=== PATIENT | female | born 1970 | race Caucasian/White ===

== ENCOUNTER → 2020-04-26 12:48 | Outpatient (BNVA) | payer MEDICARE, MEDICAID, SELFPAY | PROVIDERS: Family Provider Family Medicine; PCP Family Medicine; Visit Provider Nurse Practitioner Family | DX: N89.8 Other specified noninflammatory disorders of vagina (principal) | CPT/HCPCS: 81000; 87086; 87491; 87591; 87661 ==

== ENCOUNTER → 2020-07-03 12:54 | Outpatient (BNVA) | payer MEDICARE, MEDICAID, SELFPAY | PROVIDERS: Family Provider Family Medicine; PCP Family Medicine; Visit Provider Internal Medicine | DX: M06.9 Rheumatoid arthritis, unspecified (principal); Z11.59 Encounter for screening for other viral diseases; Z11.1 Encounter for screening for respiratory tuberculosis | CPT/HCPCS: 36415; 80053; 85025; 85651; 86140; 86480; 86704; 86803; 87340; 99202; 99214 ==

== ENCOUNTER 2020-07-31 14:24 | Outpatient (CLI) | payer MEDICARE, MEDICAID, SELFPAY ==
--- NOTE | 2020-07-31 13:30 | XR_ITS ---
WS: [id number] LATERAL CERVICAL SPINE: 3 view. Lateral radiographs are performed in upright neutral, flexion and extension to the patient's toleranc e. HISTORY: cervical pain, dec ROM COMPARISON: None available. Straightening and reversal normal cervical lordosis centered at C4. Very mild disc space narrowing th roughout. Tip of the odontoid is intact and the lateral projection. With flexion and extension there is no significant instability. Very slight retrolisthesis of C4 and C5 during extension. XR/XR cervical spine fl/ex [id number] IMPRESSION: 1. Straightening and reversal normal cervical lordosis. 2. No instability.
--- NOTE | 2020-07-31 13:45 | XR_ITS ---
WS: [id number] RIGHT HAND: 2 VIEW(S) TECHNIQUE: PA and lateral. HISTORY: Decreased range of motion. COMPARISON: None available. No acute fracture or dislocation. Severe narrowing of the joint spaces at the wrist. Bone upon bone with subchondral cystic changes and erosions. Osteopenia. XR/XR hand RT 2V [id number] IMPRESSION: Severe changes of rheumatoid arthritis involving the RIGHT wrist.
--- NOTE | 2020-07-31 14:00 | XR_ITS ---
WS: [id number] LEFT HAND: 2 VIEW(S) TECHNIQUE: PA and lateral. HISTORY: Decreased range of motion. COMPARISON: None available. No acute fracture or dislocation. Very mild narrowing of the interphalangeal joints. Severe degenerative changes at the wrist. Narrowing and obliteration of the joint spaces. There is max ne upon bone with loss of the normal joint spaces. XR/XR hand LT 2V [id number] IMPRESSION: 1. Advanced changes of rheumatoid arthritis at the wrist. 2. No metacarpal head erosions.
--- NOTE | 2020-07-31 14:15 | XR_ITS ---
WS: [id number] DEXA (DUAL ENERGY X-RAY ABSORPTIOMETRY) Bone mineral density was performed using a TASCET machine. HISTORY: osteoporosis COMPARISON: None available. Lumbar spine BMD (L1-L4): 1.069 g/cm2 T score: -0.9 Z score: -1.0 Total hip BMD: Left: 0.808. T score: -1.6 Z score: -1.4 Left forearm BMD: 0.868 g/cm2. T score: -0.1 Z score: -0.1 10 year probability of a major osteoporotic fracture is 11%. XR/XR DEXA axial skeleton* [id number] IMPRESSION: OSTEOPENIA based upon the WHO classification for females.
--- NOTE | 2020-07-31 14:30 | XR_ITS ---
WS: [id number] LEFT WRIST: 2 VIEW(S) TECHNIQUE: PA and lateral. HISTORY: Rheumatoid arthritis. COMPARISON: None available. No acute fracture or dislocation. Severe narrowing of the joint spaces of the wrist. Early obliteration of the radiocarpal joint space. Loss of the normal cartilage with osteopenia. XR/XR wrist LT 2V [id number] IMPRESSION: Severe changes of rheumatoid arthritis involving the carpus.
--- NOTE | 2020-07-31 14:45 | XR_ITS ---
WS: [id number] RIGHT WRIST: 2 VIEW(S) TECHNIQUE: PA and lateral. HISTORY: Rheumatoid arthritis COMPARISON: None available. No acute fracture or dislocation. Moderate narrowing of the joint spaces at the wrist. Bone upon bone with obliteration of the joint sp aces. No significant subluxation. Small erosions at the distal radius and ulna. Mild soft tissue edema. XR/XR wrist RT 2V [id number] IMPRESSION: Moderate changes of rheumatoid arthritis involving the RIGHT wrist.
== END 2020-07-31 14:25 | disposition home or self-care (01) ==
PROVIDERS: PCP Family Medicine; Visit Provider Internal Medicine
DX: M81.0 Age-related osteoporosis without current pathological fracture (principal); Z74.09 Other reduced mobility; M54.2 Cervicalgia; M05.79 Rheumatoid arthritis with rheumatoid factor of multiple sites without organ or systems involvement
CPT/HCPCS: 72040; 73100; 73120; 77080

== ENCOUNTER → 2020-09-18 11:08 | Outpatient (BNVA) | payer MEDICARE, MEDICAID, SELFPAY | PROVIDERS: PCP Family Medicine; Visit Provider Nurse Practitioner Family | DX: M25.562 Pain in left knee (principal); M54.42 Lumbago with sciatica, left side; M25.551 Pain in right hip | CPT/HCPCS: 72100; 73502; 73562 ==

== ENCOUNTER → 2020-09-27 12:46 | Outpatient (BNVA) | payer MEDICARE, MEDICAID, SELFPAY | PROVIDERS: PCP Nurse Practitioner Family; Visit Provider Internal Medicine | DX: M06.9 Rheumatoid arthritis, unspecified (principal); M85.80 Other specified disorders of bone density and structure, unspecified site; M48.54XA Collapsed vertebra, not elsewhere classified, thoracic region, initial encounter for fracture | CPT/HCPCS: 99213; 99214 ==

== ENCOUNTER → 2022-09-04 13:20 | Outpatient (BNVA) | payer MEDICARE, MEDICAID, SELFPAY | PROVIDERS: PCP Family Medicine; Visit Provider Family Medicine | DX: Z13.6 Encounter for screening for cardiovascular disorders (principal); Z79.899 Other long term (current) drug therapy | CPT/HCPCS: 80053; 80061; 85025 ==

== ENCOUNTER 2022-10-28 14:46 | Outpatient (CLI) | payer MEDICARE, MEDICAID, SELFPAY ==
--- NOTE | 2022-10-28 14:58 | MM_ITS ---
WS: [id number] BILATERAL 3D TOMOSYNTHESIS DIGITAL SCREENING MAMMOGRAPHY WITH CAD CLINICAL INFORMATION: screening mammogram HISTORY: Screening mammogram. No current complaints. COMPARISON: 2020 TECHNIQUE: Bilateral CC and MLO views. FINDINGS: Scattered fibroglandular densities bilaterally. 8 mm asymmetric density anterior slightly outer RIGHT breast best seen on the cc view. Recommend RIGHT breast diagnostic mammography and ultrasound for fu rther evaluation. A few incidental punctate calcifications. LEFT breast is unremarkable. MM/[place] [id number] IMPRESSION: BI-RADS: 0-Incomplete: Need additional imaging evaluation FOLLOW UP: Need Additional Imaging Recommend RIGHT breast diagnostic mammography and ultrasound for further evalua tion
== END 2022-10-28 14:47 | disposition home or self-care (01) ==
PROVIDERS: PCP Family Medicine; Visit Provider Family Medicine
DX: Z12.31 Encounter for screening mammogram for malignant neoplasm of breast (principal)
CPT/HCPCS: 77063; 77067

== ENCOUNTER 2022-11-21 14:30 | Outpatient (CLI) | payer MEDICARE, MEDICAID, SELFPAY ==
--- NOTE | 2022-11-21 15:15 | MM_ITS ---
WS: [id number] RIGHT 3D TOMOSYNTHESIS DIGITAL MAMMOGRAPHY WITH CAD CLINICAL INFORMATION: ABNORMAL MAMMO HISTORY: Extra views COMPARISON: October 28, 2022 TECHNIQUE: 3 views of the right breast were obtained. FINDINGS: Scattered fibroglandular densities of the right breast. Previously described 8 mm asymmetric density compresses out on the spot compression views today. No other suspicious abnormalities. Recommend retu rn to annual screening mammography. MM/[place] [id number] IMPRESSION: BI-RADS: 2-Benign FOLLOW UP: 1 Year Follow-up Recommend return to annual screening mammography.
== END 2022-11-21 14:31 | disposition home or self-care (01) ==
LOC: RAD 14:31
PROVIDERS: PCP Family Medicine; Visit Provider Family Medicine
DX: R92.8 Other abnormal and inconclusive findings on diagnostic imaging of breast (principal); N63.10 Unspecified lump in the right breast, unspecified quadrant
CPT/HCPCS: 77061; G0279

== ENCOUNTER 2024-04-25 13:00 | Emergency (ER) | payer MEDICARE, MEDICAID, SELFPAY ==
[2024-04-25 13:07] VITALS: BP 129/92; PULSE 101; RESP 16; TEMP 36.9; O2SAT 99
--- NOTE | 2024-04-25 14:11 | ECG_ITS ---
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 Measurements Intervals [place] Rate: 74 P: 76 AK: 131 QRS: 85 QRSD: 84 T: 74 QT: 383 QTc: 425 Interpretive Statements SINUS RHYTHM No previous ECG available for comparison Electronically Signed On 04-26-2024 21:52:13 CDT by Dany Danielson M.D. [id number]
[2024-04-25 14:12] LABS: Basophils % 0.4 %; Eosinophils # 0.1 10^3/uL (0.0-0.8); Eosinophils % 1.1 %; Hematocrit 39.6 % (36-47); Lymphocytes # 1.3 10^3/uL (0.8-4.8); Mean Corpuscular HGB Conc 32.6 g/dL (30-55); Mean Corpuscular Hemoglobin 28.4 pg (27-33); Mean Platelet Volume 9.4 fL (7.4-10.4); Monocytes # 0.3 10^3/uL (0.2-0.9); Monocytes % 4.6 %; Neutrophils # 3.74 10^3/uL (1.8-7.7); Neutrophils % 69.5 %; Nucleated Red Blood Cells % 0 %; Platelet Count 253 10^3/cmm (157-399); Red Blood Count 4.55 10^6/uL (3.85-5.65); White Blood Count 5.38 10^3/uL (3.29-11.43)
[2024-04-25 14:32] LABS: Troponin(5th) Baseline < 6 ng/L (0-10)
[2024-04-25 14:35] LABS: Alanine Aminotransferase 12 U/L (0-33); Albumin Level 4.4 g/dL (3.5-5.2); Alkaline Phosphatase 108 U/L (35-105); Anion Gap 12.1 (5-19); Aspartate Amino Transferase 14 U/L (0-32); Blood Urea Nitrogen 6 mg/dL (6-20); C Reactive Protein 5.5 mg/L (0.0-4.9); Calcium 9.3 mg/dL (8.5-10.5); Carbon Dioxide 26 mmol/L (22-29); Chloride 104 mmol/L (98-107); Globulin 2.8 g/dL (1.3-4.6); Glomerular Filtration Rate 105.4 mL/min (90-130); Glucose 92 mg/dL (65-115); Osmolality Calculated 283 mOsm/kg (285-295); Potassium 4.1 mmol/L (3.5-5.1); Sodium 138 mmol/L (136-145); Total Bilirubin 0.3 mg/dL (0.15-1.2); Total Protein 7.2 g/dL (6.6-8.7)
--- NOTE | 2024-04-25 14:36 | W.ED.GENADLT ---
HPI - General Adult General: Chief complaint: Dizziness Stated complaint: UC referral, nausea, dehydration Time Seen by Provider: 04/25/24 14:11 Source: patient Mode of arrival: ambulatory Limitations: no limitations History of Present Illness: Patient is a 53-year-old female presents to the ED today after she was referred here from urgent care for concerns of possible dehydration. Patient states on Thursday she walked a long distance in the heat at some point states she had to stop and put her head between her legs to keep from passing out. She states she was able to make it back to her apartment but states over the weekend she continued to feel fatigued and worn out . She intermittently feels nauseous. She has not had any abdominal pain. No further episodes of feeling like she is going to pass out. She has noticed some decreased urination. Onset (ago): day(s) Severity: mild Relieving factors: none Exacerbating factors: none Associated symptoms: Reports malaise and nausea; Deny chest pain, confusion, dyspnea, headache(s), rash, palpitations, syncope or vomiting Treatments prior to arrival: none Review of Systems Const: Reports: fatigue and malaise; Denies: fever(s), chills, body aches, change in appetite, change in weight or night sweats Eyes: Denies: change in vision or blurry vision Card: Denies: chest pain, palpitations, irregular heart rhythm, lightheadedness, syncope or dyspnea on exertion Resp: Denies: dyspnea, productive cough or pain on inspiration GI: Reports: nausea; Denies: abdominal pain, vomiting, heartburn or diarrhea : Denies: dysuria Musc: Denies: neck pain, back pain, extremity pain, extremity swelling or joint pain Skin/Breast: Denies: rash Neuro: Denies: headache(s), numbness in extremities, weakness in extremities, sensory changes, lack of coordination, difficulty walking, frequent falls, confusion, behavioral changes, Slurred speech present or seizure-like activity [facility] ED PFSH: Medical History Rheumatoid arthritis Surgical History History of hip surgery On the the right Hx of rotator cuff surgery Right History of partial hysterectomy Not due to cancer Hx of laparoscopy History of surgery on left wrist Hx of breast lump removal Left - benign Hx of section x 2 Social History Smoking and tobacco/nicotine status: unknown if used tobacco/nicotine Alcohol intake: never Substance/Drug Use: never Physical Exam Const: COMMON NORMALS: no acute distress, average body habitus, patient oriented x3, no limitations, healthy appearing, alert and well nourished GENERAL APPEARANCE: cooperative ORIENTATION/CONSCIOUSNESS: Yes awake, Yes oriented to person, Yes oriented to place and Yes oriented to time HENMT: COMMON NORMALS: normocephalic and atraumatic HEAD & SCALP: normocephalic and atraumatic Eye: GENERAL EYE: appearance normal, both eyes and all related structures Neck/C-Spine: COMMON NORMALS: full ROM, no lymphadenopathy, supple and no meningeal signs Chest: COMMONS NORMALS: normal inspection of the chest Resp: COMMON NORMALS: normal respiratory effort and clear to auscultation bilaterally AUSCULTATION: clear to auscultation bilaterally Cardio: COMMON NORMALS: regular rate and regular rhythm RATE: regular rate RHYTHM: regular rhythm GI: COMMON NORMALS: Normal to inspection, nondistended, normoactive bowel sounds present, Soft to palpation, non-tender, No hepatosplenomegaly present and no masses PALPATION: Yes Soft to palpation and Yes No hepatosplenomegaly present : COMMON NORMALS: Yes no CVA tenderness BLADDER/KIDNEY EXAM: Yes no CVA tenderness Back/Pelvis: COMMON NORMALS: no CVA tenderness Extremity: COMMON NORMALS: normal to inspection GENERAL: Yes normal exam except as noted Neuro: DAVID COMA SCALE: document GCS findings David coma scale eye opening: Spontaneous David coma scale verbal response: Orientated [place] coma scale motor response: Obey commands David coma scale total score: 15 COMMON NORMALS: patient oriented x3, CN's II-XII intact bilaterally, moves all extremities, no focal motor deficits, no sensory deficits noted and gait normal SENSORIUM/ORIENTATION: Yes alert, Yes oriented to person, Yes oriented to place and Yes oriented to time MENINGEAL SIGNS: Yes no meningeal signs Skin: COMMON NORMALS: no rashes or lesions noted GENERAL SKIN EXAM: no rashes or lesions noted Course Vital Signs: Vital signs: Vital Signs Temperature 98.5 F 04/25/24 13:07 Pulse Rate 101 H 04/25/24 13:07 Respiratory Rate 16 04/25/24 13:07 Blood Pressure 129/92 04/25/24 13:07 Pulse Oximetry 99 04/25/24 13:07 Oxygen Delivery Me thod Room Air 04/25/24 13:07 MDM - General Adult Medical Decision Making Patient appears in no acute distress. Her vital signs are stable. Blood work overall is unremarkable. UA is contaminated. EKG sinus rhythm. Patient states she feels better after liter of fluids and is ready to go home. Recommend continuing to push fluids and rest for another few days. Avoid heat if possible. Return precautions given. Medical Records I reviewed the patient's medical records. Lab Data I reviewed the patient's lab results. 04/25/24 13:50 04/25/24 13:50 Laboratory Results WBC 5.38 10^3/uL (3.29-11.43) 04/25/24 13:50 RBC 4.55 10^6/uL (3.85-5.65) 04/25/24 13:50 Hgb 12.90 g/dL (11.27-16.99) 04/25/24 13:50 Hct 39.6 % (36-47) 04/25/24 13:50 MCV 87.0 fl (85-98) 04/25/24 13:50 MCH 28.4 pg (27-33) 04/25/24 13:50 MCHC 32.6 g/dL (30-55) 04/25/24 13:50 RDW 12.0 % (12.1-15.1) L 04/25/24 13:50 Plt Count 253 10^3/cmm (157-399) 04/25/24 13:50 MPV 9.4 fL (7.4-10.4) 04/25/24 13:50 Neut % (Auto) 69.5 % 04/25/24 13:50 Lymph % (Auto) 24.0 % 04/25/24 13:50 [place] % (Auto) 4.6 % 04/25/24 13:50 Eos % (Auto) 1.1 % 04/25/24 13:50 Baso % (Auto) 0.4 % 04/25/24 13:50 Neut # (Auto) 3.74 10^3/uL (1.8-7.7) 04/25/24 13:50 Lymph # (Auto) 1.3 10^3/uL (0.8-4.8) 04/25/24 13:50 [place] # (Auto) 0.3 10^3/uL (0.2-0.9) 04/25/24 13:50 Eos # (Auto) 0.1 10^3/uL (0.0-0.8) 04/25/24 13:50 Baso # (Auto) 0.0 10^3/uL (0.0-0.1) 04/25/24 13:50 Nucleated RBC % (auto) 0 % 04/25/24 13:50 Nucleated RBCs # 0.0 /100WBC 04/25/24 13:50 Sodium 138 mmol/L (136-145) 04/25/24 13:50 Potassium 4.1 mmol/L (3.5-5.1) 04/25/24 13:50 Chloride 104 mmol/L (98-107) 04/25/24 13:50 Carbon Dioxide 26 mmol/L (22-29) 04/25/24 13:50 Anion Gap 12.1 (5-19) 04/25/24 13:50 BUN 6 mg/dL (6-20) 04/25/24 13:50 Creatinine 0.6 mg/dL (0.5-0.9) 04/25/24 13:50 GFR Calculation 105.4 mL/min (90-130) 04/25/24 13:50 Glucose 92 mg/dL (65-115) 04/25/24 13:50 Calculated Osmolality 283 mOsm/kg (285-295) L 04/25/24 13:50 Lactic Acid 1.0 mmol/L (0.5-2.2) 04/25/24 13:50 Calcium 9.3 mg/dL (8.5-10.5) 04/25/24 13:50 Total Bilirubin 0.3 mg/dL (0.15-1.2) 04/25/24 13:50 AST 14 U/L (0-32) 04/25/24 13:50 ALT 12 U/L (0-33) 04/25/24 13:50 Alkaline Phosphatase 108 U/L (35-105) H 04/25/24 13:50 Creatine Kinase 34 U/L (26-192) 04/25/24 13:50 Troponin T Baseline < 6 ng/L (0-10) 04/25/24 13:50 C-Reactive Protein 5.5 mg/L (0.0-4.9) H 04/25/24 13:50 Total Protein 7.2 g/dL (6.6-8.7) 04/25/24 13:50 Albumin 4.4 g/dL (3.5-5.2) 04/25/24 13:50 Globulin 2.8 g/dL (1.3-4.6) 04/25/24 13:50 Urine Color Yellow (Yellow) 04/25/24 15:45 Urine Appearance Slightly cloudy (CLEAR) 04/25/24 15:45 Urine pH 5 (5-7) 04/25/24 15:45 Ur Specific [place] 1.015 (1.005-1.030) 04/25/24 15:45 Urine Protein Neg (Negative) 04/25/24 15:45 Urine Glucose (UA) Norm (Normal) 04/25/24 15:45 Urine Ketones Negative (Negative) 04/25/24 15:45 Urine Blood Trace (Negative) H 04/25/24 15:45 Urine Nitrate Negative (Negative) 04/25/24 15:45 Urine Bilirubin Neg (Negative) 04/25/24 15:45 Urine Urobilinogen Norm mg/dL (Negative) 04/25/24 15:45 Ur Leukocyte Esterase Negative (Negative) 04/25/24 15:45 Urine RBC 0-4 /hpf (0-2) H 04/25/24 15:45 Urine WBC 0-4 /hpf (0-5) H 04/25/24 15:45 Ur Squamous Epith Cells 15-25 /hpf (0-5) H 04/25/24 15:45 Amorphous Sediment Not Reportable 04/25/24 15:45 Urine Bacteria Trace /hpf (NONE) 04/25/24 15:45 Urine Mucus 2+ /hpf 04/25/24 15:45 No radiology studies performed this visit Discharge Plan Discharge Patient Disposition: Home Clinical Impression: Heat exhaustion Qualifiers: Encounter type: initial encounter Qualified Code(s): T67.5XXA - Heat exhaustion, unspecified, initial encounter Condition: Stable Prescriptions: No Action fexofenadine [Pauline Allergy] 180 mg tablet 180 mg PO DAILY Digestive Advantage Advanced 10 billion cell capsule PO cranberry 400 mg capsule 400 mg PO DAILY Rx Instructions: administer with a meal Centrum Women 18-400 mg-mcg tablet 1 tab PO DAILY biotin 2,500 mcg capsule 2,500 mcg PO DAILY Zyrtec 10 mg capsule 10 mg PO DAILY PRN Discharge Orders: Discharge ED (Routine); Ordered 04/25/24 Ordered By: María Wu Referrals: Judy Magana DO [Primary Care Provider] - Patient Instructions: Heat Exhaustion - Adult Coding Level of Care Code ED Knifeman for Agnes Lowery
[2024-04-25] MEDS: sodium chloride 0.9% 1,000 ML 999 ML IV (14:50)
[2024-04-25 14:53] LABS: Creatine Phosphokinase 34 U/L (26-192)
[2024-04-25 16:05] LABS: Bilirubin Urine Neg (Negative); Blood Urine Trace (Negative); Glucose Urine UA Norm (Normal); Ketones Urine Negative (Negative); Leukocyte Esterase Urine Negative (Negative); Nitrate Urine Negative (Negative); Protein Urine Neg (Negative); RBC Urine 0-4 /hpf (0-2); Specific Gravity, Urine 1.015 (1.005-1.030); Squamous Epithelial Cell Urine 15-25 /hpf (0-5); Urine Appearance Slightly Cloudy (CLEAR); Urine Color Yellow (Yellow); Urobilinogen Urine Norm (Negative); WBC Urine 0-4 /hpf (0-5); pH Urine 5 (5-7)
[2024-04-25 16:06] LABS: Add Urine Culture? No; Bacteria Urine TRACE /hpf; Mucus Urine 2+ /hpf
== END 2024-04-25 16:26 | disposition home or self-care (01) ==
PROVIDERS: Emergency Medicine; Emergency Provider Physician Assistant; PCP Family Medicine
DX: T67.5XXA Heat exhaustion, unspecified, initial encounter (principal); X30.XXXA Exposure to excessive natural heat, initial encounter
CPT/HCPCS: 36415; 80053; 81001; 82550; 83605; 84484; 85025; 86140; 87040; 93005; 99284; J7030

== ENCOUNTER → 2025-05-26 09:25 | Outpatient (BNVA) | payer MEDICARE, MEDICAID, SELFPAY | PROVIDERS: PCP Family Medicine | DX: Z13.6 Encounter for screening for cardiovascular disorders (principal); R53.83 Other fatigue | CPT/HCPCS: 80053; 80061; 84443; 85025 ==

== ENCOUNTER → 2025-08-28 10:17 | Outpatient (BNVA) | payer MEDICARE, MEDICAID, SELFPAY | PROVIDERS: PCP Family Medicine; Visit Provider Emergency Medicine | DX: S93.492A Sprain of other ligament of left ankle, initial encounter (principal); X58.XXXA Exposure to other specified factors, initial encounter; M19.072 Primary osteoarthritis, left ankle and foot | CPT/HCPCS: 73630 ==

== ENCOUNTER 2025-10-10 14:04 | Outpatient (CLI) | payer MEDICARE, MEDICAID, SELFPAY ==
--- NOTE | 2025-10-10 14:13 | XRR_ITS ---
PROCEDURE INFORMATION: Exam: XR Right Hip Exam date and time: 10/10/2025 2:21 PM Age: 55 years old Clinical indication: Right hip; RT hip pain; Additional info: Acute right hip pain TECHNIQUE: Imaging protocol: Radiologic exam of the right hip. Views: 2 or 3 views hip with pelvis when performed. COMPARISON: CR XR hip RT 2-3V wo/w pel* [id number] 09/18/2020 11:10 AM FINDINGS: Bones/joints: 3 Fox pins within the proximal right femur. Intact hardware. No acute fracture. Soft tissues: Unremarkable. XR/XR hip RT 2-3V wo/w pel* [id number] IMPRESSION: No acute findings.
== END 2025-10-10 14:05 | disposition home or self-care (01) ==
LOC: RAD 14:09
PROVIDERS: PCP Family Medicine; Visit Provider Family Medicine
DX: M25.551 Pain in right hip (principal)
CPT/HCPCS: 73502